=== PATIENT | female | born 1970 | race Caucasian/White ===

== ENCOUNTER 2019-06-14 19:23 | Emergency (ER) | payer SELFPAY ==
[~2019-06-14] VITALS: Ht 162.6 cm; Wt 86.4 kg
[~2019-06-14 19:23] MED LIST: NORCO 325 MG-51 TAB PO; ZOFRAN 4MG T4 MG/TAB PO
[2019-06-14 19:30] VITALS: BP 143/88; TEMP 98.3
[2019-06-14] MEDS ORDERED: NORCO 325 MG-51 TAB PO (21:59)
[2019-06-14 22:13] VITALS: PULSE 88
== END 2019-06-14 22:13 | disposition home or self-care (01) ==
LOC: COL.ER 19:23
DX: S43.402A Unspecified sprain of left shoulder joint, initial encounter (principal); Z98.51 Tubal ligation status; W00.0XXA Fall on same level due to ice and snow, initial encounter; Y92.009 Unspecified place in unspecified non-institutional (private) residence as the place of occurrence of the external cause

== ENCOUNTER → 2021-04-03 | Outpatient (CLI) | payer BC | LOC: MC.RAD 14:17 | DX: Z12.31 Encounter for screening mammogram for malignant neoplasm of breast (principal) ==